=== PATIENT | male | born 1935 | race Caucasian/White ===

== ENCOUNTER → 2019-05-24 | Outpatient (CLI) | payer MEDICARE, OTHER ==
[~2019-05-24] MED LIST: IOPAMIDOL 370 MG/ML 200 ML INFUS..BTL INJ ONE; SODIUM CHLORIDE 0.9% 50ML 50 ML ONE
[2019-05-24 15:48] LABS: BLOOD UREA NITROGEN 13 mg/dL (7-26); BUN/CREATININE RATIO 14 (6-25); CREATININE, SERUM 0.96 mg/dL (0.72-1.25); EST GLOMERULAR FILTRATION RATE > 60 ML/MIN (60-)
--- NOTE | 2019-05-24 17:12 | Diagnostic Imaging Report ---
EXAM: CT Chest WITH intravenous contrast 05/24/2019 3:13 PM INDICATION: Chest pain, chest tightness COMPARISON: None TECHNIQUE: Chest was scanned utilizing a multidetector helical scanner from the lung apex through the level of the adrenal glands after administration of IV contrast. Coronal and sagittal reformations were obtained. Routine protocol was performed. IV CONTRAST: 100mL Isovue 370 RADIATION DOSE: Total DLP: 501 mGy*cm. Dose modulation, iterative reconstruction, and/or weight based adjustment of the mA/kV was utilized to reduce the radiation dose to as low as reasonably achievable. COMPLICATIONS: None FINDINGS: LINES/ TUBES: Left chest pacer LUNGS AND AIRWAYS: The central airways are patent. There is severe left upper lobe diffuse tubular and cystic bronchiectasis with near complete replacement of left upper lobe lung parenchyma. There is also to bladder and cystic bronchiectasis to a lesser extent at the right upper lobe lung apex. Mild bibasilar dependent subsegmental atelectasis. PLEURA: No pleural effusion or pneumothorax. HEART AND MEDIASTINUM: The thyroid gland appears unremarkable. No supra clavicular or axillary lymphadenopathy. Mediastinal lymphadenopathy, most notably a 2.3 cm left tracheal necrotic appearing lymph node (series 3 image 24). 3.0 x 5.9 cm necrotic appearing subcarinal mass which exerts mass effect upon versus arises from the mid thoracic esophagus. Proximal to this mass, the esophagus is dilated up to 3.0 cm in diameter with layering debris. No hilar lymphadenopathy. The heart is not enlarged. No pericardial effusion. Postoperative findings of CABG. No central pulmonary embolism. UPPER ABDOMEN: Innumerable hypodense lesions throughout the right and left liver, most of which have a necrotic appearance and are compatible with hepatic metastases. The portal vein remains patent. 1.5 cm right adrenal nodule on the nonspecific 5 mm right midpole renal calculus. No hydronephrosis. BONES: No acute fracture or dislocation. No suspicious lytic or blastic lesions. SOFT TISSUES: Unremarkable. IMPRESSION: Necrotic subcarinal mass either arises from the mid thoracic esophagus or represents a subcarinal patricia mass exerting mass effect upon the esophagus. More proximally, the esophagus is dilated and contains layering debris. This is concerning for primary esophageal cancer versus metastatic disease. Innumerable hepatic metastases. Right adrenal nodule is nonspecific on this single phase CT and may also be metastatic versus a benign entity such as an adenoma. Extensive left upper lobe and to a lesser extent right upper lobe tubular and cystic bronchiectasis with near complete replacement of left upper lobe normal lung parenchyma may be related to scarring/chronic post infectious changes, possibly related to chronic aspiration. Primary lung cancer remains a possibility but is less likely to have this appearance. Signed by: David Mark MD on 05/24/2019 5:09 PM
== END ==
LOC: CT 14:28
PROVIDERS: ATTEND Family Medicine
DX: R07.9 Chest pain, unspecified (principal)
CPT/HCPCS: 36415; 71260; 82565; 84520; Q9967